=== PATIENT | male | born 1990 | race Two or more races ===

== ENCOUNTER 2024-01-02 19:14 | Emergency (ER) | payer MEDICAID ==
[~2024-01-02] VITALS: Ht 160 cm; Wt 83.9 kg
[2024-01-02] MEDS ORDERED: AZIT250T PO (21:41)
[2024-01-02 21:47] VITALS: BP 130/79; TEMP 99.5; O2SAT 100
== END 2024-01-02 21:48 | disposition home or self-care (01) ==
LOC: ER 19:19
DX: J03.90 Acute tonsillitis, unspecified (principal); Z20.822 Contact with and (suspected) exposure to COVID-19
CPT/HCPCS: 86403; 87070; A4606; A4663